=== PATIENT | female | born 1975 | race Two or more races ===

== ENCOUNTER 2022-02-02 14:34 | Emergency (ER) | payer MEDICAID ==
[~2022-02-02] VITALS: Ht 152.4 cm; Wt 46.0 kg
[2022-02-02] MEDS ORDERED: IOHEXOL-350 100 ML BOTTLE ONE (15:14)
[2022-02-02 15:27] LABS: BASOPHILS % 0.2 % (0.0-2.0); EOSINOPHILS % 1.8 % (0.0-5.0); HEMATOCRIT. 35.5 % (36.0-48.0); HEMOGLOBIN. 12.2 g/dL (12.0-16.0); LYMPHOCYTES % 31.9 % (20.0-50.0); MEAN CORPUSCULAR HEMOGLOBIN 30.4 pg (28.0-32.0); MEAN CORPUSCULAR VOLUME 88.4 fL (81.0-99.0); MEAN PLATELET VOLUME 7.1 fl (7.4-10.4); MONOCYTES % 5.8 % (2.0-8.0); NEUTROPHILS % 60.3 % (40.0-76.0); PLATELET 373 x1000/uL (130-400); RED BLOOD CELL COUNT 4.01 mill/uL (4.2-5.4); RED CELL DISTRIBUTION WIDTH 12.9 % (11.6-14.6)
[2022-02-02 15:36] LABS: CHLORIDE 96 mEq/L (98-107)
[2022-02-02 15:38] LABS: HCG SCREEN NEGATIVE
[2022-02-02 15:47] LABS: ETHANOL BLOOD < 10 mg/dL
[2022-02-02 16:38] VITALS: BP 175/89
[2022-02-02] MEDS ORDERED: ASPIRIN 325MG EC TABLET PO ONE (17:00)
== END 2022-02-02 16:57 | disposition short-term general hospital (02) ==
LOC: ER 14:34 → CANBEDREQ 18:04
DX: I63.9 Cerebral infarction, unspecified (principal); E11.9 Type 2 diabetes mellitus without complications; Z20.822 Contact with and (suspected) exposure to COVID-19
CPT/HCPCS: 36415; 70450; 70496; 70498; 71045; 80053; 80320; 83735; 84484; 84703; 85025; 87426; 93005; 99291; C9803; Q9967; G0480